=== PATIENT | female | born 1985 | race Caucasian/White ===

== ENCOUNTER 2019-12-08 00:32 | Emergency (ER) | payer SELFPAY ==
[2019-12-08 00:37] VITALS: BP 119/71; PULSE 99; RESP 18; TEMP 36.3; O2SAT 100; BMI 27.3
--- NOTE | 2019-12-08 02:41 | ED.NAVMDI ---
HPI - Nausea/Vomiting/Diarrhea General Chief complaint: Nausea/Vomiting/Diarrhea Stated complaint: NAUSEA/VOMITING/CHEST PRESSURE Time Seen by Provider: 12/08/19 02:33 Source: patient Mode of arrival: ambulatory History of Present Illness HPI Narrative: patient states for the past 2 3 days has been having nausea vomiting diarrhea. Now came in with epigastric pain. Denies fevers or chills denies blood in stool or vomit. MD elicited complaint: nausea, vomiting and diarrhea Associated nausea: Yes Exacerbating factors: eating Related Data Previous Rx's Medication Instructions Recorded famotidine [Pepcid] 20 mg PO DAILY #14 tab 12/08/19 ondansetron 4 mg PO Q8H PRN 5 Days #15 tab 12/08/19 tramadol 50 mg PO BID PRN #14 tab 12/08/19 Allergies Allergy/AdvReac Type Severity Reaction Status Date / Time citalopram [From Celexa] Allergy Rash Verified 12/08/19 00:37 diphenhydramine Allergy Rash Verified 12/08/19 00:37 [From Benadryl] Penicillins Allergy Rash Verified 12/08/19 00:37 Review of Systems Review of Systems: Constitutional : No Weight loss, No Fever, No Chills, No Night Sweats, No Fatigue, No Malaise ENT/Mouth : No Hearing loss, No Ear Pain, No Nasal Congestion, No Sinus Pain, No Hoarseness, No sore throat, No Rhinorrhea, No Swallowing Difficulty Eyes: No Eye Pain, No Swelling, No Redness, No Foreign Body, No Discharge, No Vision Changes Cardiovascular : No Chest Pain, No SOB, No Dyspnea on Exertion, No Orthopnea, No Edema, No Palpitations Respiratory : No Cough, No Sputum, No Wheezing, No Smoke Exposure, No Dyspnea Gastrointestinal : positive Nausea, positiveVomiting, positive Diarrhea, No Constipation, positiveabdominal Pain, No Hematochezia, No Melena Genitourinary : no irregular bleeding, No Dysuria, No Urinary Frequency, No Hematuria, No Urinary Incontinence, No Urgency, No Flank Pain, No Urinary Flow Changes, No Hesitancy Musculoskeletal : No joint pain, No Myalgias, No Joint Swelling Skin : No Skin Lesions, No rash Neuro : No Weakness, No Numbness, No Paresthesias, No Loss of Consciousness, No Dizziness, No Headache Psych : No Anxiety/Panic, No Depression, No SI/HI/AH/VH, No Social Issues, Heme/Lymph: No Bruising, No Bleeding,No Lymphadenopathy Endocrine : No Polyuria, No Polydipsia, No Temperature Intolerance Gastrointestinal: Gastrointestinal: Reports nausea PMFSH Past Medical History Medical History Asthma Surgical History (Updated 12/08/19 @ 02:43 by Víctor Patel DO) S/P appendectomy Family History Family History (Updated 12/08/19 @ 02:43 by Víctor Patel DO) Other Family history non-contributory Social History Social History (Updated 12/08/19 @ 02:43 by Víctor Patel DO) Alcohol intake: current Alcohol intake frequency: holidays/special occasions only Smoking Status: Current some day smoker Use of substances other than those prescribed or required for medical reasons: No Advance Directives: No Advance Directives Information Provided: No Physical Exam Vital Signs and I&O and Narrative: Vital Signs and I&O: Vital Signs Temp 97.4 F 12/08/19 00:37 Pulse 79 12/08/19 04:03 Resp 15 12/08/19 04:03 BP 119/71 12/08/19 00:37 Pulse Ox 99 12/08/19 04:03 Intake & Output 12/07/19 12/07/19 12/08/19 06:59 18:59 06:59 Weight 81.647 kg Body Mass Index 27.3 reviewed Appearance: Alert. Oriented X3. No acute distress. Eyes: Pupils equal, round and reactive to light. ENT: Pharynx normal. Neck: Normal inspection. Neck supple. No lymph nodes noted. No crepitus CVS: Normal heart rate and rhythm. Pulses normal. Normal S1 and S2 Respiratory: No respiratory distress. Breath sounds normal. No Wheezing. No rales Abdomen: Soft and positive right upper and mid upper tender. No rigidity. No distention. good BS x4 Skin: Skin warm and dry. Normal skin color. Normal skin turgor. Extremities: No lower extremity edema. Neurovascular intact to all extremities. No Lacerations. No Rash Neuro: Oriented X 3. No motor deficit. No sensory deficit. Moving all extermities. No slurred speech. Course Course Course Narrative: patient tolerated p.o. intake at discharge. Labs within normal limits. Feeling much improved with a GI cocktail and IV Pepcid. Normal labs I doubt at this point patient has acute cholecystitis. Normal hemoglobin doubt patient has acute bleeding ulcer MDM - Nausea/Vomiting/Diarrhea Lab Data Result diagrams: 12/08/19 02:56 12/08/19 02:56 Labs: Lab Results 12/08/19 12/08/19 12/08/19 Range/Units 02:56 02:56 02:56 WBC 7.0 (4.8-10.8) X10*3/uL RBC 4.95 (4.20-5.50) X10*6/uL Hgb 9.4 L (12.0-16.0) g/dl Hct 32.1 L (37-47) % MCV 64.8 L (80-98) fL MCH 19.0 L (27.0-33.0) pg MCHC 29.3 L (31.0-35.0) g/dl RDW 19.4 H (11.0-16.0) % Plt Count 329 (160-400) X10*3/uL MPV 10.6 (9.4-12.3) fL Immature Gran % (Auto) 1.6 H (0.0-0.4) % Neut % (Auto) 52.0 (45-73) % Lymph % (Auto) 35.4 (20-40) % [place] % (Auto) 7.7 (2-11) % Eos % (Auto) 2.4 (0-4) % Baso % (Auto) 0.9 (0-2) % Lymph # (Auto) 2.5 (1.2-4.9) X10*3/uL [place] # (Auto) 0.5 (0.1-1.2) X10*3/uL Eos # (Auto) 0.2 (0.0-0.4) X10*3/uL Baso # (Auto) 0.1 (0.0-0.2) X10*3/uL Abs Immat Gran (auto) 0.11 H (0.00-0.03) X10*3/uL Absolute Neuts (auto) 3.7 (2.0-8.3) X10*3/uL Absolute Nucleated RBC 0.000 (0.0-0.012) X10*3/uL Nucleated RBC % (auto) 0.0 (0.0-0.2) /100WBC Smear Tech's Comments VERIFIED Sodium 139 (135-145) mmol/L Potassium 4.2 (3.3-5.1) mmol/l Chloride 103 (96-108) mmol/L Carbon Dioxide 26 (22-29) mmol/L Anion Gap 14 (12-20) BUN 11 (9-16) mg/dL Creatinine 0.93 (0.5-1.4) mg/dL Estim Creat Clear Calc 97.3 Estimated GFR > 60 Random Glucose 101 (60-115) mg/dL Calcium 9.7 (8.4-10.2) mg/dL Total Bilirubin 0.5 (0.0-1.0) mg/dL Direct Bilirubin 0.2 (0.0-0.5) mg/dL AST 15 (5-31) U/L ALT 14 (0-31) U/L Alkaline Phosphatase 70 (39-117) U/L Total Protein 7.7 (6.5-8.0) g/dL Albumin 4.3 (3.5-5.0) g/dL Lipase 64 (8-78) U/L Urine Color YELLOW Urine Appearance CLEAR Urine pH 6.0 (5.0-8.0) Ur Specific [place] 1.020 (1.005-1.025) Urine Protein NEG (NEG-TRACE) MG/DL Urine Glucose (UA) NEG (NEG) MG/DL Urine Ketones NEG (NEG) MG/DL Urine Blood NEG (NEG) Urine Nitrite NEG (NEG) Ur Leukocyte Esterase TRACE H (NEG) Urine RBC 0-2 (0) /HPF Urine WBC 5-9 H (0-4) /HPF Ur Squamous Epith Cells 1+ /LPF Urine Bacteria TRACE /LPF Urine Test NEGATIVE (NEGATIVE) Discharge Plan Discharge Clinical Impression: Gastroenteritis Patient Disposition: Home, Self-Care Instructions: Acute Nausea and Vomiting (ED) Additional Instructions: Thank you for visiting the emergency department today. If your symptoms worsen or do not resolve completely please return to the emergency department immediately or call 911. if he have any questions please call your primary care physician Prescriptions: New ondansetron 4 mg tablet,disintegrating 4 mg PO Q8H PRN (Reason: nausea and vomiting) 5 Days Qty: 15 RF: 0 famotidine [Pepcid] 20 mg tablet 20 mg PO DAILY Qty: 14 RF: 0 tramadol 50 mg tablet 50 mg PO BID PRN (Reason: pain) Qty: 14 RF: 0 Referrals: [facility] [Provider Group] - 2 days
[2019-12-08] MEDS: ondansetron HCL 4 MG/2 ML VIAL IVPUSH (03:02)
[2019-12-08] MEDS: 0.9 % Sodium Chloride 1,000 ML 999 ML IVCONT (03:02)
[2019-12-08] MEDS: Famotidine/PF 20 MG/2 ML VIAL IVPUSH (03:02)
[2019-12-08 03:04] LABS: MANUAL DIFF FLAG SCAN; Red Cell Distribution Width 19.4 % (11.0-16.0); SCAN SMEAR FLAG 1
[2019-12-08 03:06] LABS: Basophils Absolute Auto 0.1 X10*3/uL (0.0-0.2); Basophils Percent Auto 0.9 % (0-2); Eosinophils Absolute Auto 0.2 X10*3/uL (0.0-0.4); Eosinophils Percent Auto 2.4 % (0-4); Glucose Urine UA NEG (NEG); Hematocrit 32.1 % (37-47); Hemoglobin 9.4 g/dl (12.0-16.0); Imm Gran Abs Auto 0.11 X10*3/uL (0.00-0.03); Imm Gran Pct Auto 1.6 % (0.0-0.4); Leukocyte Esterase Urine TRACE (NEG); Lymphocytes Absolute Auto 2.5 X10*3/uL (1.2-4.9); Lymphocytes Percent Auto 35.4 % (20-40); Mean Corpuscular HGB Conc 29.3 g/dl (31.0-35.0); Mean Platelet Volume 10.6 fL (9.4-12.3); Monocytes Absolute Auto 0.5 X10*3/uL (0.1-1.2); Monocytes Percent Auto 7.7 % (2-11); Neutrophils Absolute Auto 3.7 X10*3/uL (2.0-8.3); Nitrite Urine NEG (NEG); Platelet Count 329 X10*3/uL (160-400); Red Blood Count 4.95 X10*6/uL (4.20-5.50); Urine Blood NEG (NEG); Urine Ketones NEG (NEG); Urine Protein NEG (NEG-TRACE)
[2019-12-08 03:08] VITALS: RESP 15; O2SAT 98
[2019-12-08 03:16] VITALS: O2SAT 95
[2019-12-08 03:31] LABS: Alanine Aminotransferase 14 U/L (0-31); Albumin Level 4.3 g/dL (3.5-5.0); Alkaline Phosphatase 70 U/L (39-117); Anion Gap 14 (12-20); Aspartate Amino Transferase 15 U/L (5-31); Bilirubin Direct 0.2 mg/dL (0.0-0.5); Bilirubin Total 0.5 mg/dL (0.0-1.0); Blood Urea Nitrogen 11 mg/dL (9-16); Calcium 9.7 mg/dL (8.4-10.2); Carbon Dioxide 26 mmol/L (22-29); Chloride 103 mmol/L (96-108); Creatinine Clr Calc Pharmacy 97.3; Estimated Glomerular Filt Rate > 60; Glucose Random 101 mg/dL (60-115); Lipase 64 U/L (8-78); Potassium 4.2 mmol/l (3.3-5.1); Sodium 139 mmol/L (135-145); Total Protein 7.7 g/dL (6.5-8.0)
[2019-12-08 03:32] LABS: UPreg QC Valid YES; Urine Pregnancy NEGATIVE (NEGATIVE)
[2019-12-08 03:33] LABS: Appearance Urine CLEAR; Color Urine YELLOW; Mean Corpuscular Volume 64.8 fL (80-98); PLT ABN DIST 1
[2019-12-08 03:34] LABS: RBC Urine 0-2 /HPF (0); Squamous Epithelial Cell Urine 1+ /LPF
[2019-12-08 03:35] LABS: Bacteria Urine TRACE /LPF
[2019-12-08 03:39] LABS: SLIDE REVIEW VERIFIED
[2019-12-08 03:46] VITALS: PULSE 85
--- NOTE | 2019-12-08 03:46 | PC.NURSE ---
Pt refused morphine at time of regional medical director. aware. Pt reporting she is not feeling any better after pepcid. Plan for GI cocktail. NSR on tele.
[2019-12-08] MEDS: PHENobarb/Hyoscy/Atropine/Scop 10 ML ELIXIR PO (03:58)
[2019-12-08] MEDS: Magnesium Hydrox/Alum Hydrox 30 ML ORAL.SUSP PO (03:59)
[2019-12-08] MEDS: Lidocaine HCl Viscous 2 % 15 ML SOLUTION MUCOUS MEM (03:59)
--- NOTE | 2019-12-08 04:02 | PC.NURSE ---
Unable to scan phenobarb label. Pt medicated with GI cocktail as charted. Effects pending.
[2019-12-08 04:03] VITALS: PULSE 79; RESP 15; O2SAT 99
== END 2019-12-08 04:47 | disposition home or self-care (01) ==
PROVIDERS: Emergency Provider Emergency Medicine
DX: K52.9 Noninfective gastroenteritis and colitis, unspecified (principal); F17.200 Nicotine dependence, unspecified, uncomplicated; Z71.6 Tobacco abuse counseling; Z79.899 Other long term (current) drug therapy
CPT/HCPCS: 36415; 80048; 80076; 81001; 81025; 83690; 85025; 87086; 96361; 96374; 96375; 99284; 99285; J2270; J2405